=== PATIENT | male | born 1985 | race Caucasian/White ===

== ENCOUNTER 2020-12-22 09:52 | Outpatient (CLI) | payer OTHER ==
[2020-12-22] MEDS ORDERED: Magnevist 469MG/ML 20 ML VIAL ONE (14:12)
== END 2020-12-22 09:53 | disposition home or self-care (01) ==
LOC: BICMRI 09:52
PROVIDERS: ATTEND Otolaryngology Plastic Surgery within the Head & Neck
DX: D49.0 Neoplasm of unspecified behavior of digestive system (principal); Z98.890 Other specified postprocedural states
CPT/HCPCS: 70543; A9579

== ENCOUNTER 2021-04-04 06:43 | Outpatient (CLI) | payer OTHER ==
[2021-04-04] MEDS ORDERED: Magnevist 469MG/ML 20 ML VIAL ONE (13:57)
== END 2021-04-04 06:44 | disposition home or self-care (01) ==
LOC: BICMRI 06:43
PROVIDERS: ATTEND Otolaryngology Plastic Surgery within the Head & Neck
DX: D49.0 Neoplasm of unspecified behavior of digestive system (principal); Z79.890 Hormone replacement therapy; Z98.890 Other specified postprocedural states
CPT/HCPCS: 70543; A9579